=== PATIENT | female | born 2000 | race African-American/Black ===

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

== ENCOUNTER 2022-07-04 09:19 | Emergency (ER) | payer OTHER ==
[2022-07-04] MEDS ORDERED: Orphenadrine Citrate 60 MG/2 ML VIAL ONE (11:46)
[2022-07-04] MEDS ORDERED: Ketorolac Tromethamine 30 MG/ML VIAL ONE (11:46)
== END 2022-07-04 12:07 | disposition home or self-care (01) ==
LOC: ERS 09:19
DX: S13.4XXA Sprain of ligaments of cervical spine, initial encounter (principal); V49.3XXA Car occupant (driver) (passenger) injured in unspecified nontraffic accident, initial encounter
CPT/HCPCS: 99283; J1885; J2360

== ENCOUNTER 2023-02-13 22:54 | Emergency (ER) | payer OTHER ==
[2023-02-14] LABS: #Basophils 0.1 thou/uL (0.0-0.2); #Eosinphils 0.4 thou/uL (0.0-0.7); #Monocytes 0.8 thou/uL (0.11-0.59); #Neutrophils 5.3 thou/uL (1.40-6.50); %Basophils 0.5 % (0.0-1.0); %Eosinophils 3.3 % (0.0-10.0); %Lymphocytes 39.7 % (21.0-51.0); %Monocytes 7.6 % (0.0-10.0); %Neutrophils 48.6 % (42.0-75.0); Hemoglobin 13.3 g/dL (12.0-16.0); Mean Corpuscular HGB CONC 32.8 g/dL (32.0-36.0); Mean Corpuscular Hemoglobin 30.3 pg (27.0-31.0); Mean Corpuscular Volume 92.3 fl (78.0-98.0); Mean Platelet Volume 9.8 fL (7.4-10.4); Platelet Count 332 10x3/uL (130-400); RBC Distribution Width 12.8 % (11.5-14.5); Red Blood Cell (RBC) Count 4.39 mill/uL (4.20-5.40); White Blood Cell (WBC) Count 10.9 10x3/uL (4.8-10.8)
[2023-02-14 00:26] LABS: ALT (SGPT) 8 U/L (8-55); AST (SGOT) 10 U/L (5-34); Albumin 4.2 g/dL (3.5-5.0); Alkaline Phosphatase 68 U/L (40-110); Anion Gap 12 mmol/L (10-20); BUN (Urea Nitrogen) 13 mg/dL (7.0-18.7); Bilirubin, Total 0.2 mg/dL (0.2-1.2); Calc. Creatinine Clearance 0 mL/min (70-130); Calcium 9.5 mg/dL (7.8-10.44); Carbon Dioxide 21 mmol/L (22-29); Chloride 107 mmol/L (98-107); Estimated GFR 95; Globulin 3.8 g/dL (2.4-3.5); Glucose 91 mg/dL (70-105); Potassium 3.8 mmol/L (3.5-5.1); Sodium 136 mmol/L (136-145)
[2023-02-14 00:30] LABS: Bacteria/HPF None Seen HPF (None Seen); Bilirubin Negative (Negative); Blood, Urine Negative (Negative); CAUTI Indications for Culture Pelvic or flank pain; Clarity Clear (Clear); Glucose, Urine (Dipstick) Normal (Negative); Ketone, Urine Negative (Negative); Leukocyte Negative Leu/uL (Negative); Nitrite Negative (Negative); Protein, Urine (Dipstick) Negative (Neg-Trace); RBC/HPF 0-3 HPF (0-3); Specific Gravity, Urine 1.024 (1.002-1.036); Squamous Epithelial 0-3 HPF (0-3); Urobilinogen Normal mg/dL (Less than 2); WBC/HPF 0-3 HPF (0-3)
[2023-02-14 00:32] LABS: Pregnancy Test - Urine (BHCG) Negative (Negative); Pregu Control Background? CLEAR/WHITE (CLR/WHITE); Pregu Control Bar Appear? YES (CONTROL BAR); Specific Gravity 1.024 (1.002-1.036); Urine Culture Reflex No No
== END 2023-02-14 01:34 | disposition home or self-care (01) ==
LOC: ERS 22:54
DX: N92.1 Excessive and frequent menstruation with irregular cycle (principal); N93.8 Other specified abnormal uterine and vaginal bleeding; D72.829 Elevated white blood cell count, unspecified
CPT/HCPCS: 36415; 80053; 81001; 81025; 84702; 85025; 86850; 86900; 86901; 99284

== ENCOUNTER 2023-03-09 20:31 | Emergency (ER) | payer OTHER ==
[2023-03-09] MEDS ORDERED: Ibuprofen 800 MG TAB ONE (21:21)
== END 2023-03-09 21:26 | disposition home or self-care (01) ==
LOC: ERS 20:31
DX: S00.83XA Contusion of other part of head, initial encounter (principal); H66.92 Otitis media, unspecified, left ear; W22.8XXA Striking against or struck by other objects, initial encounter
CPT/HCPCS: 99283

== ENCOUNTER 2023-04-02 19:27 | Emergency (ER) | payer OTHER ==
[2023-04-02 21:07] LABS: Pregnancy Test - Urine (BHCG) POSITIVE (Negative); Pregu Control Background? CLEAR/WHITE (CLR/WHITE); Pregu Control Bar Appear? YES (CONTROL BAR); Specific Gravity 1.026 (1.002-1.036)
[2023-04-02 21:08] LABS: Bacteria/HPF None Seen HPF (None Seen); Bilirubin Negative (Negative); Blood, Urine Negative (Negative); CAUTI Indications for Culture Pregnancy; Clarity Clear (Clear); Glucose, Urine (Dipstick) Normal (Negative); Ketone, Urine Negative (Negative); Leukocyte Negative Leu/uL (Negative); Nitrite Negative (Negative); Protein, Urine (Dipstick) 10 mg/dL (Neg-Trace); RBC/HPF 0-3 HPF (0-3); Specific Gravity, Urine 1.026 (1.002-1.036); Urobilinogen 6 mg/dL (Less than 2); WBC/HPF 0-3 HPF (0-3); pH, Urine 6.5 (5.0-9.0)
[2023-04-02 23:23] LABS: Urine Culture Reflex Yes Yes
== END 2023-04-02 22:42 | disposition home or self-care (01) ==
LOC: ERS 19:27
DX: O99.611 Diseases of the digestive system complicating pregnancy, first trimester (principal); Z3A.01 Less than 8 weeks gestation of pregnancy
CPT/HCPCS: 81001; 81025; 87086; 99283

== ENCOUNTER 2023-10-08 13:24 | Emergency (ER) | payer OTHER ==
[2023-10-08 15:57] LABS: Bacteria/HPF None Seen HPF (None Seen); Bilirubin Negative (Negative); Blood, Urine Negative (Negative); CAUTI Indications for Culture Pelvic or flank pain; Clarity Clear (Clear); Glucose, Urine (Dipstick) Normal (Negative); Ketone, Urine Negative (Negative); Leukocyte Negative Leu/uL (Negative); Nitrite Negative (Negative); Protein, Urine (Dipstick) Negative (Neg-Trace); RBC/HPF 0-3 HPF (0-3); Specific Gravity, Urine 1.012 (1.002-1.036); Urobilinogen Normal mg/dL (Less than 2); WBC/HPF 0-3 HPF (0-3)
[2023-10-08 15:59] LABS: Urine Culture Reflex No No
== END 2023-10-08 15:40 | disposition home or self-care (01) ==
LOC: ERS 13:24
DX: O47.9 False labor, unspecified (principal); Z3A.00 Weeks of gestation of pregnancy not specified
CPT/HCPCS: 76815; 81001

== ENCOUNTER 2024-06-29 11:25 | Emergency (ER) | payer OTHER | END 2024-06-29 12:08 | disposition home or self-care (01) | LOC: ERS 11:25 | DX: L73.9 Follicular disorder, unspecified (principal); F90.9 Attention-deficit hyperactivity disorder, unspecified type | CPT/HCPCS: 99283 ==

== ENCOUNTER 2024-07-23 12:29 | Emergency (ER) | payer OTHER ==
[2024-07-23] MEDS ORDERED: Ipratropium/Albuterol 3 ML NEB ONE (13:20)
[2024-07-23] MEDS ORDERED: Ketorolac Tromethamine 30 MG (1 mL) VIAL ONE (13:20)
[2024-07-23] MEDS ORDERED: predniSONE 20 MG TAB ONE (13:20)
== END 2024-07-23 14:36 | disposition home or self-care (01) ==
LOC: ERS 12:29
DX: J20.9 Acute bronchitis, unspecified (principal); R10.9 Unspecified abdominal pain
CPT/HCPCS: 71046; 96372; J1885; J7512; J7620

== ENCOUNTER 2025-08-15 18:22 | Emergency (ER) | payer OTHER, SELFPAY ==
[2025-08-15 18:48] LABS: #Basophils 0.04 10x3/uL (0.0-0.2); #Eosinophils 0.20 10x3/uL (0.0-0.7); #Monocytes 0.81 10x3/uL (0.11-0.59); #Neutrophils 5.68 10x3/uL (1.40-6.50); %Basophils 0.4 % (0.0-1.0); %Eosinophils 1.9 % (0.0-10.0); %Lymphocytes 36.0 % (21.0-51.0); %Monocytes 7.7 % (0.0-10.0); %Neutrophils 53.7 % (42.0-75.0); Hematocrit 39.1 % (36.0-47.0); Hemoglobin 13.0 g/dL (12.0-16.0); Mean Corpuscular Hemoglobin 28.6 pg (27.0-31.0); Mean Corpuscular Volume 85.9 fL (78.0-98.0); Platelet Count 275 10x3/uL (130-400); Red Blood Cell (RBC) Count 4.55 mill/uL (4.20-5.40); White Blood Cell (WBC) Count 10.56 10x3/uL (4.8-10.8)
[2025-08-15 18:52] LABS: Pregnancy Test - Urine (BHCG) Negative (Negative); Pregu Control Background? CLEAR/WHITE (CLR/WHITE); Pregu Control Bar Appear? YES (CONTROL BAR)
[2025-08-15 18:53] LABS: Bacteria/HPF 1+ HPF (None Seen); CAUTI Indications for Culture Acute Hematuria; Glucose, Urine (Dipstick) Normal (Negative); Leukocyte Negative Leu/uL (Negative); Protein, Urine (Dipstick) 10 mg/dL (Neg-Trace); RBC/HPF None Seen HPF (0-3); Specific Gravity, Urine 1.030 (1.002-1.036); WBC/HPF None Seen HPF (0-3)
[2025-08-15 18:54] LABS: Urine Culture Reflex No No
[2025-08-15 19:13] LABS: ALT (SGPT) 8 U/L (Less than 34); AST (SGOT) 11 U/L (11-34); Albumin 4.1 g/dL (3.1-4.5); Alkaline Phosphatase 82 U/L (40-110); Anion Gap 15 mmol/L (10-20); BUN (Urea Nitrogen) 13 mg/dL (7.0-18.7); Bilirubin, Total 0.2 mg/dL (0.3-1.2); Calc. Creatinine Clearance 0 mL/min (70-130); Calcium 9.4 mg/dL (7.8-10.44); Carbon Dioxide 21 mmol/L (22-29); Chloride 106 mmol/L (98-107); Globulin 3.7 g/dL (2.4-3.5); Glucose 104 mg/dL (70-105); Lipase 38 U/L (8-78); Potassium 4.0 mmol/L (3.5-5.1); Sodium 138 mmol/L (136-145)
== END 2025-08-15 23:29 | disposition home or self-care (01) ==
LOC: ERS 18:22
DX: N39.0 Urinary tract infection, site not specified (principal); N76.0 Acute vaginitis; B37.9 Candidiasis, unspecified
CPT/HCPCS: 80053; 81001; 81025; 83690; 85025; 87480; 87510; 87660; 99283

== ENCOUNTER 2025-08-17 16:11 | Emergency (ER) | payer SELFPAY | END 2025-08-17 18:28 | disposition home or self-care (01) | LOC: ERS 16:11 | DX: J11.1 Influenza due to unidentified influenza virus with other respiratory manifestations (principal) | CPT/HCPCS: 87428; 99283 ==